=== PATIENT | female | born 1995 | race Caucasian/White ===

== ENCOUNTER 2020-03-23 22:25 | Emergency (ER) | payer OTHER ==
[~2020-03-23] VITALS: Ht 165.1 cm; Wt 68.5 kg
[2020-03-23 22:34] VITALS: BP 138/85
--- NOTE | 2020-03-23 22:36 | NUR ---
Note undone in EDM - 03/23/20 at 2254 by [facility] C/O ABD BLOATING / PAIN X 3 DAYS . LUNG SOUNDS CLEAR ALL THROUGHOUT. ABD IS ROUND, SOFT, ACTIVE BS, AND TENDERNESS ON LUQ AND RLQ. DENIES ANY N,V,D,BLOOD IN STOOL, OR BLOOD IN URINE, OR DYSURIA. 7/10 PAIN. DENIES FEVERS. +GAS PMH: DENIES NKA
--- NOTE | 2020-03-23 22:36 | NUR ---
C/O ABD BLOATING / PAIN X 3 DAYS . LUNG SOUNDS CLEAR ALL THROUGHOUT. EQUAL CHEST RISE AND FALL. ABD IS ROUND, SOFT, ACTIVE BS, AND TENDERNESS ON LUQ AND RLQ. DENIES ANY N,V,D,BLOOD IN STOOL, OR BLOOD IN URINE, OR DYSURIA. 7/10 PAIN. DENIES FEVERS. PT IS PASSING GAS. VSS. A&O X4. STEADY GAIT. PMH: DENIES NKA
[2020-03-23] MEDS ORDERED: SIMETHICONE 40 MG/0.6 ML PO ONE (22:55)
--- NOTE | 2020-03-23 22:56 | NUR ---
XR AT BEDSIDE.
[2020-03-23 23:44] VITALS: BP 138/85
--- NOTE | 2020-03-23 23:44 | NUR ---
Patient discharged with v/s stable. Written and verbal after care instructions given and explained. Patient alert, oriented and verbalized understanding of instructions. Ambulatory with steady gait. All questions addressed prior to discharge. ID band removed. Patient advised to follow up with PMD. Rx of simethicone given. Patient educated on indication of medication including possible reaction and side effects. Opportunity to ask questions provided and answered.
== END 2020-03-23 23:44 | disposition home or self-care (01) ==
LOC: MED 22:25
DX: K21.9 Gastro-esophageal reflux disease without esophagitis (principal); R14.0 Abdominal distension (gaseous)
CPT/HCPCS: 74018; 81002; 81025; 99283; Q0092

== ENCOUNTER 2020-03-25 02:58 | Emergency (ER) | payer OTHER ==
[~2020-03-25] VITALS: Ht 165.1 cm; Wt 68.0 kg
[2020-03-25 03:01] VITALS: BP 128/79
--- NOTE | 2020-03-25 03:02 | NUR ---
PT TAKEN TO BED 4
--- NOTE | 2020-03-25 03:02 | NUR ---
24 Y/O FEMALE C/O ABD BLOATING SINCE TUESDAY - PT WAS SEEN HERE 03/23/20 FOR SAME ISSUE AND WAS PRESCRIBED MEDICATION W/ NO RELIEF. PT STATES THAT IT IS DIFFICULT FOR HER TO LAY DOWN W/O FEELING SOB AND STRONG CHEST PAIN. PT STATES THAT THE SOB, CP AND DIZZINESS GETS WORSE AT NIGHT. PT A/O X 4 , RR EVEN AND UNLABORED, LUNG SOUNDS BL CLEAR , S1S2 NOTED, ACTIVE BOWEL SOUNDS IN ALL QUADS. PT DENIES N/V/D/CONSTIPATION/FEVER/BODYACHES. PT AMBULATED TO ER BED 4 W/ STEADY GAIT. PT RESTING IN BED, LOCKED AND IN LOWEST POSITION, HOB ELEVATED, SIDE RAIL X2 FOR PT SAFETY. PMH: COVID+ IN DECEMBER NKA
--- NOTE | 2020-03-25 03:06 | NUR ---
Dr. Harper examining patient.
[2020-03-25] MEDS ORDERED: DICYCLOMINE HCL LIQUID 20 MG, ALUMINUM HYD/MAG/SIMETHICONE 30 ML, LIDOCAINE VISCOUS 2% ... PO ONE ×3 (03:10)
[2020-03-25] MEDS ORDERED: DICYCLOMINE HCL LIQUID 10 MG/5 ML UDC ONE (03:11)
[2020-03-25] MEDS ORDERED: LIDOCAINE VISCOUS 2% 20 ML UDC ONE (03:11)
[2020-03-25] MEDS ORDERED: ALUMINUM HYD/MAG/SIMETHICONE 30 ML UDC ONE (03:11)
--- NOTE | 2020-03-25 03:16 | NUR ---
lab at bedside.
[2020-03-25 03:24] LABS: BASOPHILS # (AUTO) 0.1 K/uL (0.00-0.22); BASOPHILS % (AUTO) 0.7 % (0.0-2.0); EOSINOPHILS # (AUTO) 0.1 K/uL (0-0.4); EOSINOPHILS % (AUTO) 2.1 % (0.0-4.0); HEMATOCRIT 41.2 % (36-48); HEMOGLOBIN 13.9 g/dL (12.0-16.0); LYMPHOCYTES # (AUTO) 3.4 K/uL (2.5-16.5); LYMPHOCYTES % (AUTO) 50.2 % (20.5-51.1); MEAN CORPUSCULAR HEMOGLOBIN 30 pg (27-31); MEAN CORPUSCULAR HGB CONC 34 g/dL (33-37); MEAN CORPUSCULAR VOLUME 87.3 fL (80-94); MONOCYTES # (AUTO) 0.5 K/uL (0.8-1.0); MONOCYTES % (AUTO) 6.9 % (1.7-9.3); NEUTROPHILS # (AUTO) 2.7 K/uL (1.8-7.7); NEUTROPHILS % (AUTO) 40.1 % (42.2-75.2); PLATELET COUNT (AUTO) 246 K/uL (140-450); RED BLOOD CELL COUNT(AUTO) 4.73 MIL/uL (4.20-5.40); RED CELL DISTRIBUTION WIDTH 13.7 % (11.6-13.7); WHITE BLOOD COUNT (AUTO) 6.8 K/uL (4.8-10.8)
[2020-03-25 03:44] LABS: ALBUMIN 4.4 g/dL (3.4-5.0); ANION GAP 15.8 (8-16); CARBON DIOXIDE 23.7 mmol/L (21-32); CREATININE 0.7 mg/dL (0.6-1.3); POTASSIUM 3.5 mmol/L (3.5-5.1); TOTAL BILIRUBIN 1.5 mg/dL (0.0-1.0)
--- NOTE | 2020-03-25 03:44 | NUR ---
XRAY AT BEDSIDE.
--- NOTE | 2020-03-25 03:50 | NUR ---
PT SITTING IN BED, LOCKED AND IN LOWEST POSITION, HOB ELEVATED , SIDE RAIL X2 FOR PT SAFETY. PT STATES SHE IS FEELING ANXIOUS , OBSERVED MILD HYPERVENTILATION. DR. PAULINO MADE AWARE.
--- NOTE | 2020-03-25 03:52 | NUR ---
DR. PAULINO AT BEDSIDE FOR RE EVALUATION.
[2020-03-25] MEDS ORDERED: LORazepam 1 MG TAB PO ONE (03:55)
--- NOTE | 2020-03-25 04:10 | NUR ---
EKG PERFORMED AT BEDSIDE. SINUS RHYTHM @ 63
--- NOTE | 2020-03-25 04:17 | NUR ---
PT STATES SHE IS FEELING LESS ANXIOUS AND FEELS LIKE SHE CAN CATCH HER BREATH BETTER AFTER TAKING ATIVAN.
[2020-03-25 04:18] VITALS: BP 128/79
--- NOTE | 2020-03-25 04:18 | NUR ---
Patient discharged with v/s stable. Written and verbal after care instructions given and explained. Patient alert, oriented and verbalized understanding of instructions. Ambulatory with steady gait. All questions addressed prior to discharge. ID band removed. Patient advised to follow up with PMD. Rx of PEPCID AND ATIVAN given. Patient educated on indication of medication including possible reaction and side effects. Opportunity to ask questions provided and answered.
== END 2020-03-25 04:18 | disposition home or self-care (01) ==
LOC: MED 02:58
DX: K29.70 Gastritis, unspecified, without bleeding (principal); R14.0 Abdominal distension (gaseous); F41.9 Anxiety disorder, unspecified; K21.9 Gastro-esophageal reflux disease without esophagitis
CPT/HCPCS: 36415; 71045; 80053; 83690; 85025; 93005; 99285; Q0092